=== PATIENT | male | born 1945 | race Caucasian/White ===

== ENCOUNTER → 2017-01-14 | Outpatient (CLI) | payer BC ==
[2017-01-14 10:46] LABS: BUN/CREATININE RATIO 17 (0-10)
== END ==
LOC: LAB 09:55
PROVIDERS: Internal Medicine Interventional Cardiology
DX: R06.02 Shortness of breath (principal); I10 Essential (primary) hypertension; R07.9 Chest pain, unspecified
CPT/HCPCS: 36415; 80053; 80061

== ENCOUNTER → 2017-01-15 | Outpatient (CLI) | payer BC | LOC: HEART 5 09:15 | DX: R07.9 Chest pain, unspecified (principal); I10 Essential (primary) hypertension; R06.02 Shortness of breath | CPT/HCPCS: 78452; 93306; A9502 ==